=== PATIENT | male | born 1970 | race Caucasian/White ===

== ENCOUNTER → 2019-10-19 11:53 | Outpatient (CLI) | payer BC, SELFPAY ==
--- NOTE | 2019-10-19 15:19 | STRESSREP ---
Stress Test Report Date: 10/19/2019 Procedure: Exercise tolerance test Indications: Chest pain Consent: Per the patient Procedure: The patient exercised on a Gaurav protocol for 9 minutes achieving a peak heart rate of 184 bpm (106 % predicted maximal heart rate) with a peak blood pressure 154/88 mmHg and a peak MET capacity of approximately 10.1 mET's. The baseline ECG demonstrated normal sinus rhythm. The peak exercise ECG demonstrated sinus tachycardia with about [address] depressions in the inferior and lateral leads. No evidence of significant ischemia. [There were no cardiac dysrhythmias pretest, during exercise, or recovery]. The functional capacity was considered normal for age. Patient had 2 x 10 chest discomfort at peak exercise. He also had dizziness in the recovery period. When he was having dizziness he did not have any significant arrhythmias and his blood pressure was within normal limits with no evidence of orthostasis. He was having sinus tachycardia with a heart rate in the 110s to 120s. The examination was discontinued secondary to dizziness, shortness of breath, chest pressure. Impression: 1. Technically adequate (percent predicted maximal heart rate greater than 85%) exercise tolerance test 2. Stress test is positive for exercise-induced chest pain. 3. Stress test test is negative for exercise-induced EKG changes of ischemia. 4. Functional capacity is normal for age. 5. Patient had dizziness with no evidence of significant arrhythmias or drop in blood pressure. This note was generated with [email or web address] software. It may contain incorrect words, spelling, and punctuation that were not noted in checking the note before signing.
== END ==
PROVIDERS: Family Provider Family Medicine; PCP Family Medicine; Referring Provider Family Medicine; Visit Provider Family Medicine
DX: R07.9 Chest pain, unspecified (principal)
CPT/HCPCS: 93017

== ENCOUNTER → 2019-12-18 17:36 | Outpatient (CLI) | payer BC, SELFPAY ==
--- NOTE | 2019-12-18 17:42 | CT_ITS ---
STUDY: CT LEFT HIP WITHOUT CONTRAST REASON FOR EXAM: Male, 49 years old. IDIOPATHIC ASEPTIC NECROSIS OF LEFT FEMUR, ANGÉLICA RADIATION DOSAGE (If Supplied By Facility): CTDIvol = ( 20.315 ) mGy, DLP = ( 1483.26 ) mGycm TECHNIQUE: Thin section transaxial imaging of the hip was obtained, with sagittal and coronal reconstructed images. Individualized dose optimization techniques were used for this CT. COMPARISON: None. FINDINGS: Avascular necrosis of the left femoral head with subchondral fracture involving 90% of the weight-bearing surface. Degenerative changes are noted in the sacroiliac joints and pubic symphysis. There is a right hip arthroplasty in good alignment. Calcifications in the medial and lateral menisci in the knee joint are noted with chondrocalcinosis. The on metastasis in the knee joint is anatomic. CT/Extremity Lower without Contra IMPRESSION: Avascular necrosis of the left femoral head with subchondral fracture involving 90% of the weight-bearing surface. Electronically Signed: Viola Oconnor, at 8:11 EST Tel , Service support ,
== END ==
PROVIDERS: PCP Family Medicine; Referring Provider Physician Assistant Surgical; Visit Provider Physician Assistant Surgical
DX: M87.052 Idiopathic aseptic necrosis of left femur (principal)
CPT/HCPCS: 73700

== ENCOUNTER 2020-01-03 07:12 | Observation (INO) | payer BC, SELFPAY ==
[2014-06-28 09:24] VITALS: BMI 28.0
--- NOTE | 2019-12-08 13:06 | PCM.HP.BLA ---
History and Physical History and Physical Patient Name: Lino Espinal : 1970 From: CECILIA CLARKE PA-C DATE OF SURGERY: 01/03/2020 SCHEDULED PROCEDURE: left total hip arthroplasty HISTORY OF PRESENT ILLNESS: Preoperative history and physical exam was performed on December 07, 2019. This is a 49-year-old henrry who is been having ongoing pain over the past 1 year. He states over the past several months the pain in the left hip has progressively become worse. He does have history of a previous right total hip arthroplasty in 2007 due to avascular necrosis. Procedure was performed in [facility]. Patient states his pain can reach as high as a 10/10 with activities. Pain is increased with going up and down stairs, walking, sitting, driving. Pain is been constant. He does have groin pain as well as pain into the thigh down to the knee. He denies any low back pain. Patient does have start up pain. He has difficulty with activities of daily living including getting dressed as well as exercise. He has difficult time with sleeping and occasionally wakes him at night. Patient has not been on any chronic steroid use. He does consume approximately 2-3 beers daily. He denies any recent fevers, chills, recent calf pain. He has been treated by a dentist for an infected tooth. We are obtaining surgical clearance from the dentist. We'll also obtaining surgical clearance and the primary care physician Dr. Dailey. Patient has a medical history pertinent for hypertension. After failing conservative measures and discussing treatment options, the patient does wish to proceed with a left total hip arthroplasty. Patient has required the use of a cane due to the pain. REVIEW OF SYSTEMS: ROS: Const: Denies anorexia, change in appetite, fever, hard of hearing, vision problems and weight change. CV: Denies chest pain, heart murmur, irregular heartbeat and peripheral vascular disease. Resp: Denies asthma, cough, pneumonia, sleep apnea, SOB, tuberculosis and wheezing. GI: Denies constipation, diarrhea, difficulty swallowing, heartburn, nausea, bloody stools and vomiting. : Urinary: denies incontinence. Musculo: Reports limp and trouble walking, but denies leg swelling and weakness. Skin: Reports tattoo, but denies Raynaud's and history of shingles. Neuro: Denies ambulatory dysfunction, dizziness, numbness/tingling and tremor. Psych: Denies anxiety, depression, insomnia, mental illness and stress. Negro/Lymph: Denies anemia, bleeding/bruising tendency and past transfusion. Reviewed, no changes. PAST MEDICAL HISTORY: Advance Care Plan: No Advance Directives Effective Date: 11/22/2019 PMH: Medical Problems: High Blood Pressure Accidents: Fracture - JAW RT ARM RT Ankle Injury - (03/2012) RT Knee Injury - (10/2015) FELL ON IT Surgical Hx: Hip Replacement Rt - (2007) [facility], DR MCCAIN Vastectomy - (11/2011) Anesthesia Complications: None Assistive Devices: None Reviewed, no changes. 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 Personal Habits: Cigarette Use: Never.Alcohol: Weekly use.Drug Use: Denies Use.Enjoy Exercising: Daily. Reviewed and updated. VITALS: Ht: 76 Wt: 242lb Wt k.771 BMI: 29.5 BP: 112/90 Pulse: 66 Resp: 16 T: 99.1 T: 37.3C ALLERGIES: Penicillins - Rash MEDICATIONS: Losartan Potassium 100 mg 1 by mouth every day, Allopurinol 100 mg 1 by mouth every day PRE-OP EXAM: General appearance:NORMAL Other: Eyes: Conjunctivae and lids: NORMAL Pupils: ERR Ears, Nose, Mouth, and Throat: NORMAL Other: Inspection of lips, teeth and gums: NORMAL Other: Neck: Examination of neck: no masses noted. Respiratory: Assessment of respiratory effort: NORMAL Other: Auscultation of lungs: clear to auscultation no wheezes, rhonchi or rales. Cardiovascular: Auscultation of heart: regular rate and rhythm, no murmurs, gallops or rubs. Exam of carotid arteries: NORMAL Other: Gastrointestinal: Exam of abdomen: soft, nontender, nondistended bowel sounds present. PHYSICAL EXAMINATION: On physical exam patient's left hip is cool to touch without erythema. There is tenderness to palpation along the anterior left hip. He does complain of left groin pain with range of motion. There is obligatory external rotation with flexion of the left hip. Flexion 60 with increased pain, internal rotation neutral, external rotation 20. Hip strength 4/5 secondary to pain. Sensation intact to light touch. IMAGING STUDIES: Trays of the left hip reveal evidence of avascular necrosis with flattening of the femoral head. There is joint space narrowing with osteophyte formation with bony erosions within the femoral head. IMPRESSION: 1. Left hip osteoarthritis with evidence of avascular necrosis 2. Presence of right total hip arthroplasty 3. Hypertension PLAN: Did discuss and review with the patient all treatment options including surgical versus nonsurgical options. Patient does wish to proceed with the above-stated procedure. Potential risks, benefits, and complications of the procedure were discussed in detail including but not limited to , infection, nerve and blood vessel damage, persistent pain, numbness, tingling, paresthesias, blood clot, pulmonary embolism, and requirement for possible further surgery. The patient expressed full understanding and has no further questions for the doctor. Patient does agree to proceed with the above-stated procedure and has signed the surgery consent form. This dictation was created using voice recognition software. Phonetic and/or grammatical errors may exist. ___ I have re-examined the patient. There are no clinical changes since date of exam. ___ See progress notes for changes. ___ Dictated on admission Date: Time: Signature:
[2019-12-11 13:10] VITALS: BP 123/85; PULSE 93; RESP 16; TEMP 36.6; O2SAT 97; BMI 30.6
--- NOTE | 2019-12-11 13:27 | SDCEKG_ITS ---
Test Reason : Blood Pressure : / mmHG Vent. Rate : 089 BPM Atrial Rate : 089 BPM P-R Int : 124 ms QRS Dur : 106 ms QT Int : 390 ms P-R-T Axes : 004 013 013 degrees QTc Int : 474 ms Normal sinus rhythm Normal ECG Confirmed by KOMAL MCGUIRE ([id number]), editor at large JOHANN BARBOSA ([id number]) on 12/14/2019 3:02:34 PM Referred By: Vinny Oneal Confirmed By:KOMAL MCGUIRE
[2019-12-11 13:50] LABS: Absolute Lymphocyte Count 1.34 X10^3/uL (0.83-4.51); Absolute Neutrophil Count 3.5 X10^3/uL (2.0-7.7); Basophil# 0.02 X10^3/uL; Basophil% 0.4 % (0-1); Eosinophils% 1.8 % (0-5); Hematocrit 47.5 % (40-54); Hemoglobin 16.2 g/dL (13.0-16.5); Lymphocyte # 1.34 X10^3/ul (4.0); Lymphocyte % 24.4 % (19-41); Mean Corp Hgb Conc 34.1 g/dL (32-36); Mean Corpuscular Hgb 31.2 pg (27.0-32.0); Mean Corpuscular Volume 91.5 fL (80-94); Mean Platelet Vol. 10.2 fl (6.2-12.0); Monocyte# 0.49 X10^3/uL; Monocyte% 8.9 % (0-10); NRBC Flagged by Analyzer 0 % (0-5); Neutrophil # 3.51 X10^3/uL (2.7-7.7); Platelet Count 179 K/mm3 (150-450); RBC Distribution Width CV 12.3 % (11.6-14.6); RBC Distribution Width SD 41.6 fl (35.1-43.9); Red Blood Count 5.19 M/mm3 (4.6-6.2); White Blood Count 5.5 K/mm3 (4.4-11.0)
[2019-12-27 12:44] LABS: Albumin, Serum 3.6 g/dL (3.2-5.0)
[2020-01-03] VITALS (12 sets, daily range): BP systolic 111–147; BP diastolic 76–104; PULSE 66–88; RESP 16–18; TEMP 36.1–36.7; O2SAT 97–100; BMI 30.2
[2020-01-03 07:05] LABS: Bedside Glucose 78 mg/dL (70-110)
[2020-01-03] MEDS: Lactated Ringers 1,000 ML 999 ML IV ×2 (07:22→11:07)
[2020-01-03] MEDS: Acetaminophen 500 MG Tablet 1000 MG PO ×3 (07:24→21:20)
[2020-01-03] MEDS: Gabapentin 600 MG Tablet PO (07:24)
[2020-01-03] MEDS: Celecoxib 200 MG Capsule 400 MG PO (07:24)
[2020-01-03] MEDS: Cefazolin 2 GM in 0.9% Normal Saline 100 ML IV (08:40)
--- NOTE | 2020-01-03 08:45 | HIP_PTH ---
PATIENT: ALINA FINLEY LOC: MS3 U#:[id number] AGE/SX: 49/M ROOM: CA325 RE01/03/[address]: Dr. Gutierrez Marroquin DO : 1970 BED: 1 DIS: 01/04/2020 SPEC #: [id number] RECD: 01/03/20 17:13 STATUS: CELI REQ #: [id number] GEENA: 01/03/20 08:[address]: Vinny Oneal DEPT: SURGICAL PATHOLOGY RECD BY: Lamin Jane ENTERED: 01/04/20 08:49 SP TYPE: TOTAL HIP OTHR DR: DO Dr. Vicente King MD Dr. William Lago, MD Tissues: Hip, NOS Procedures: Decalcification bone/plaque Surgery Specimen Level IV HEADER OPERATION: ERAS, total hip anterior robotic arm PRE-OP DIAGNOSIS: Left hip osteoarthritis with evidence of avascular necrosis TISSUE SUBMITTED: Left femoral head MICROSCOPIC DIAGNOSIS Left femoral head, total hip replacement: Femoral head with extensive changes consistent with avascular necrosis. Fragments of reactive synovial tissue with fibrinous exudation, chronic inflammation and foreign body giant cell reaction. BAUTISTA:breezy 01/10/20 MICROSCOPIC DESCRIPTION Slides are reviewed. GROSS DESCRIPTION Received is one container designated left femoral head. The specimen consists of a femoral head measuring 5.5 x 5 x 3.5 cm. Articular cartilage is peeling off from the underlying bone. Also present in the container is a detached piece of bone consistent with femoral neck measuring 5 x 3 x 1.5 cm. Also present in the container is a piece of articular cartilage with soft tissue. The articular cartilage measures 4.5 x 3 x 0.2 cm and soft tissue measures 3 x 2 x 1 cm. Sections of soft tissue show javier-white surfaces. Ingot Stripper sections are submitted in three cassettes as follows: 1 - soft tissue, 2 & 3 - femoral head after decalcification. / BAUTISTA:breezy 01/04/20 TC:5 CPT: 30380, 40443
--- NOTE | 2020-01-03 08:45 | RAD_ITS ---
STUDY: X-RAY - PELVIS AND LEFT HIP REASON FOR EXAM: Male, 49 years old. Total anterior hip in o.r. 4.4 sec. Fl TECHNIQUE: 1 views of the pelvis and hip. COMPARISON: None. FINDINGS: Intraoperative imaging provided for left total hip replacement. There is good alignment. RAD/Hip 1 view with Pelvis IMPRESSION: Status post left total hip replacement. There is good alignment. Electronically Signed: Bud Chiang, at 12:52 EST , Service support ,
[2020-01-03] MEDS: dexAMETHasone 10 MG/ML Vial IV (09:10)
--- NOTE | 2020-01-03 10:23 | OP.PCM_ITS ---
Report of Operation Date of Procedure: 01/03/20 Pre-Operative Diagnosis: Left hip avascular necrosis Post-Operative Diagnosis: Left hip avascular necrosis Surgery/Procedure Performed:: Minimally invasive robotic assisted direct anterior total hip replacement, left Description of Surgical Findings:: Stable hip, equal leg lengths lobster fisherman: Dick Ornelas Type of Anesthesia:: Spinal Anesthesiologist: Juan Hanson Special Medications: 2 g Ancef, 1 g TXA at incision, 1 g TXA closure, 10 mg Decadron, joint cocktail (5 mg Duramorph, 30 mL of 0.5% Ropivicaine, 1000 units of epinephrine, 30 mg of Toradol) Specimen's removed: Bony cuts Estimated Blood Loss (mL): 200 Fluids Replaced: 1300 mL crystalloid Description of Procedure: Components used: 1. Accolade 2 Deanne femoral stem size 7 127? 2. Maxwell trident 2 acetabular shell size 58 mm 3. Maxwell X3 polyethylene F 4. Deanne Biolox delta 36 mm, 0 mm femoral head Brief history operative indications: 49 yo M who failed conservative measures for their hip avascular necrosis. X- rays were consistent with osteoarthritis including joint space narrowing, osteophyte formation and subchondral collapse of the femoral head. Total hip replacement was discussed with the patient with risks and benefits including but not limited to blood loss, DVTs, PEs, neurovascular damage, dislocation, general risks of anesthesia including loss of life. Patient demonstrated an understanding medical clearance is obtained the patient was consented for surgery. Procedure: On the date of procedure the patient's L hip was marked in the preoperative area. Patient was then taken back to the operating room where anesthesia assumed control of the C-spine and airway and administered anesthetic. Patient was transferred to the operating table and placed in the supine position. The hips were placed at the break of the bed and a sacral bump was placed. A checkpoint was placed on the tibial tubercle. The L lower extremity was then prepped out in a sterile fashion using chlorhexidine while the surgeon scrubbed. The PA was vital in the positioning of the patient. Upon reentering the room the L lower extremity was draped in the standard orthopedic fashion and the incision was marked. A timeout was called and everyone agreed upon the side, the site, the procedure be performed, antibody given, and patient's identity. 3 pins were placed in the right iliac crest with a small skin incision and blunt dissection down to the bone. After the skins were placed in a ray was placed for targeting. At this time left hip operative incision was made through skin, subcutaneous tissue, and fat down to fascia. The fascia was then incised and the TFL was retracted laterally. A retractor was placed on the lateral border of the femoral neck. Attention was directed to the inferior portion of the approach and all crossing vessels were identified and appropriately coagulated. A retractor was then placed on the medial portion of the femoral neck. The anterior capsule was then cleared of all soft tissue and then H shaped capsulotomy was made. The retractors were then placed inside the capsule. The checkpoint was placed. The checkpoints were registered. The femoral neck was identified and a cleanup cut was made. At this time a power corkscrew was used to remove the femoral head. Attention was then turned toward the acetabulum where the soft tissues were appropriately retracted and debrided. The acetabulum was registered. The robot was brought into the field sterilely and the acetabulum was reamed to 58 mm. A 58 mm cup was then selected and impacted into place. Acetabular liner was impacted into place and locking mechanism was verified. The position of the acetabular cup was then verified under live fluoroscopy. Attention was then turned to the femur. Soft tissue releases on the medial and lateral femoral neck were appropriately done, the leg was externally rotated and lateralized. A Cueva retractor was placed medially and proximally to the greater trochanter this allowed appropriate visualization and exposure of the femoral canal. Rongeour was then used to remove excess lateral bone. A canal finder and entry broach were used to open the proximal canal. Once we verified we were down the femoral canal we subsequently broached up to a size 7 femur. The appropriate neck was placed in the previously selected head was trialed with a 0 mm neck. Traction was pulled and the hip was reduced with internal rotation. Once it was appropriately reduced and stability was checked. There was minimal shuck, equal leg lengths and appropriate stability with hyperextension and external rotation as well as with 90? flexion and internal rotation. Fluoroscopy was then also used to verify the position of the components and leg lengths using the contralateral side for comparison. The trial components were then dislocated the proximal femur was again exposed and the components were removed from the wound. The final components were verified and opened. The wound was copiously irrigated out with normal saline. The acetabulum was checked for any residual debris. The final components were placed and impacted. Traction and internal rotation were again used to reduce the hip. After adequate reduction the hip remained stable with appropriate leg lengths. The final components were once again checked with live fluoroscopy and were found to be satisfactory. The wound was then copiously irrigated with normal saline once more, and hemostasis was obtained. Closure was then done using #1 Vicryl runner to close the fascia. A 2-0 vicryl interuppted sutures were used to close the subcutaneous skin. A 3-0 Monocryl and Steri-Strips were used for final skin closure. the pins were removed and pin sites closed. A sterile dressing was placed. Patient was awakened by anesthesia and transferred to the [place]. Patient was then transferred to the PACU for recovery. Postoperative plan: Patient will get 24 hours postop antibiotics. Patient will get in-house physical therapy and will be weight-bear as tolerated. Patient will follow up in office in 2 weeks for a wound check and x-rays. - Complications No intraoperative complications - Admit VTE Documentation VTE Present on Admission: No VTE Mechan Device Prophylaxis: SCD's, Thigh High DARNELL Hose VTE Pharm Prophylaxis ordered?: Yes
[2020-01-03] MEDS: Lactated Ringers 1,000 ML 125 ML IV ×4 (10:50→21:20)
--- NOTE | 2020-01-03 10:54 | RAD_ITS ---
STUDY: X-RAY - PELVIS AND LEFT HIP REASON FOR EXAM: Male, 49 years old. POST OP LEFT HIP TECHNIQUE: 2 views of the pelvis and hip. COMPARISON: Comparison is made with prior study done earlier today. FINDINGS: The patient is status post left total hip preplacement. There is good alignment. Postoperative soft tissue changes. RAD/Hip Min 2 Views (Portable) IMPRESSION: Status post left total hip replacement. Good alignment. Postoperative soft tissue changes. Electronically Signed: Bud Chiang, at 12:52 EST , Service support ,
[2020-01-03] MEDS: Scopolamine 1mg/72hr Patch 1 PATCH TD (11:11)
[2020-01-03] MEDS: Ensure Surgery 237 ML LIQUID PO ×2 (13:18→16:59)
[2020-01-03] MEDS: Famotidine 20 MG Tablet PO (13:18)
[2020-01-03] MEDS: Allopurinol 100 MG Tablet PO (13:19)
--- NOTE | 2020-01-03 15:40 | PCM.PN.HOSP ---
Subjective: 49-year-old male who presents today for left total hip arthroplasty, he is feeling very well today and states that the pain postoperatively is much better than what the pain was prior to surgery. He has already walked the entire unit today with therapy. He had a right total hip done in 2007 for avascular necrosis, and he is found to have left hip osteoarthritis with evidence of avascular necrosis, apparently this is genetic as his brother has also had undergo hip replacement for avascular necrosis. His procedure today 01/03/2020 and is doing well. He has very few chronic medical conditions and those were all been stable. Vitals/I&O's: Vital Signs Temp Pulse Resp BP Pulse Ox 97.8 F 83 16 133/93 H 97 01/03/20 14:29 01/03/20 14:29 01/03/20 14:29 01/03/20 14:29 01/03/20 14:29 Oxygen Flow Rate (L/min) 6 Oxygen Delivery Method Room Air Weight: 242 lb Body Mass Index (BMI) 30.2 Intake and Output for Last 24 Hours 01/01/20 01/02/20 01/03/20 23:59 23:59 23:59 Intake Total 3440.42 / 3440.42 Balance 3440.42 / 3440.42 General: Alert, Oriented x3, Cooperative, No apparent distress HEENT: Atraumatic, PERRLA, EOMI, Normocephalic Oral: Moist Mucosa Neck: Supple, No JVD Lungs: Clear to auscultation, Normal air movement, No rhonchi, No wheeze, No rales Cardiovascular: Regular rate, Regular Rhythm, Normal S1, Normal S2, No murmurs Abdomen: Soft, Non Tender, Non-Distended, No Hepato-splenomegaly Extremities: No edema, Capillary Refill Less than 3 Seconds Skin: No rashes, No breakdown, Incision - Dressing CDI Neurological: Neuro grossly intact, Sensory exam intact to light touch and pain Psych/Mental Status: Normal Affect, Appropriate Laboratory Results 01/03/20 07:03: POC Glucose 78 Current Medications Acetaminophen (Tylenol) 1,000 mg PO Q8 [facility] Last Admin: 01/03/20 14:52 Dose: 1,000 mg Documented by: Allopurinol (Zyloprim) 100 mg PO DAILYCM [facility] Last Admin: 01/03/20 13:19 Dose: 100 mg Documented by: Aspirin (Aspirin, Baby) [facility] Cholecalciferol (Vitamin D (25mcg)) 1,000 unit PO DAILYCM [facility] Last Admin: 01/03/20 13:18 Dose: 1,000 unit Documented by: Enteral Nutritional Formula (Ensure Surgery) 237 ml PO TIDCM [facility] Last Admin: 01/03/20 13:18 Dose: 237 ml Documented by: Famotidine (Pepcid) 20 mg PO DAILY [facility] Last Admin: 01/03/20 13:18 Dose: 20 mg Documented by: Lactated Ringer's () 1,000 mls @ 125 mls/hr IV .Q8H [facility] Last Admin: 01/03/20 12:35 Dose: 125 mls/hr Documented by: Cefazolin Sodium () 1 gm in 50 mls @ 150 mls/hr IV Q8H [facility] Stop: 01/04/20 01:19 Insulin Human Lispro (Humalog Kwikpen ([facility])) 1 - 6 unit SC Q4H PRN PRN; Protocol PRN Reason: BG>/= 180, SEE PROTOCOL Ketorolac Tromethamine (Toradol (Bkc)) 15 mg IV Q6H PRN PRN PRN Reason: Pain Score 1-5/10 Stop: 01/05/20 07:13 Losartan Potassium (Cozaar) 100 mg PO DAILY [facility] Meloxicam (Mobic) 7.5 mg PO BID [facility] Morphine Sulfate () 2 - 4 mg IV Q2H PRN PRN PRN Reason: Pain Score 4-10/10 Morphine Sulfate () 2 - 4 mg IV Q2H PRN PRN PRN Reason: Pain Score 4-10/10 Ondansetron HCl (Zofran) 4 mg IV Q8H PRN PRN PRN Reason: NAUSEA Promethazine HCl (Phenergan) 12.5 mg IM Q6H PRN PRN; Protocol PRN Reason: NAUSEA/VOMITING Senna/Docusate Sodium (Senokot-S, Orin-Colace) 2 tablet PO BID [facility] Last Admin: 01/03/20 13:19 Dose: Not Given Documented by: Sodium Chloride () 10 - 40 ml IV UD PRN PRN Reason: SALINE FLUSH Tramadol HCl (Ultram) 50 - 100 mg PO Q6H PRN PRN PRN Reason: Pain Score 4-10/10 STROKE Vital Signs/Narrative: Vital Signs Temp Pulse Resp BP Pulse Ox 01/03/20 14:29 97.8 F 83 16 133/93 H 97 01/03/20 12:40 97.9 F 66 18 124/83 H 98 01/03/20 12:00 96.9 F L 68 16 115/80 100 01/03/20 11:59 96.9 F L 68 16 115/80 100 01/03/20 11:46 66 16 119/76 100 Medical Necessity - Tobacco Use Smoking Status: Never smoker Tobacco Use: Non-smoker Assessment/Plan 1. Left total hip replacement 01/03/2020 -Pain management per primary -DVT prophylaxis per primary -PT/OT 2. HTN -Blood pressures are stable -Continue with losartan 3. Gout -Stable -Continue with allopurinol DVT: Aspirin twice daily Code Visit OBSV E&M: 37671 Subsequent observation care L2
[2020-01-03] MEDS: Aspirin 81 MG TAB.CHEW PO (16:58)
[2020-01-03] MEDS: Cefazolin 1 GM/50 ML BAG IV (16:59)
[2020-01-03] MEDS: traMADol 50 MG Tablet PO (21:20)
[2020-01-04] MEDS: Cefazolin 1 GM/50 ML BAG IV (01:11)
[2020-01-04 02:30] VITALS: BP 136/78; PULSE 78; RESP 16; TEMP 36.8; O2SAT 98
[2020-01-04] MEDS: Acetaminophen 500 MG Tablet 1000 MG PO (05:09)
[2020-01-04 05:57] LABS: Hematocrit 39.9 % (40-54); Hemoglobin 13.2 g/dL (13.0-16.5); Mean Corp Hgb Conc 33.1 g/dL (32-36); Mean Corpuscular Hgb 30.8 pg (27.0-32.0); Mean Platelet Vol. 10.1 fl (6.2-12.0); Platelet Count 202 K/mm3 (150-450); Red Blood Count 4.29 M/mm3 (4.6-6.2)
[2020-01-04 06:24] LABS: Anion Gap 4 (5-15); BUN 16 mg/dL (7-18); Calcium,Total 8.8 mg/dL (8.5-10.1); Chloride 110 mmol/L (98-107); Creatinine, Serum 0.94 mg/dL (0.70-1.30); EST Glomerular Filtration Rate 91 mL/min (>60); Est Glom Filt Rate - Afr Amer 110 mL/min (>60); Estimated Creatinine Clearance 116.11 ml/min; Glucose 158 mg/dL (74-106); Potassium 4.6 mmol/L (3.5-5.1); Sodium Level 141 mmol/L (136-145)
[2020-01-04] MEDS: Ensure Surgery 237 ML LIQUID PO (07:45)
[2020-01-04] MEDS: Allopurinol 100 MG Tablet PO (07:45)
[2020-01-04] MEDS: Aspirin 81 MG TAB.CHEW PO (07:45)
[2020-01-04] MEDS: traMADol 50 MG Tablet PO (07:52)
[2020-01-04 07:55] VITALS: BP 145/83; PULSE 72; RESP 18; TEMP 36.7; O2SAT 99
--- NOTE | 2020-01-04 08:47 | PCM.PN.ORT ---
Subjective: The patient was sitting in bedside chair upon examination. Patient denies any chest pain, shortness of breath, dizziness, lightheadedness, nausea or vomiting, or calf pain. Pain is controlled on medications. No adverse overnight events. Patient is doing very well and has very little pain in his postoperative left hip. Patient is tolerating physical therapy very well. Objective: Vital signs stable and afebrile. Patient is able to plantarflex and dorsiflex actively. Sensation is intact to light touch to saphenous, sural, superficial and deep peroneal, and tibial distribution. Dressing is clean dry and intact. Negative Homans bilaterally, negative signs and symptoms of DVT. - Physical Exam Vitals/I&O's: Vital Signs Temp Pulse Resp BP Pulse Ox 98.0 F 72 18 145/83 H 99 01/04/20 07:55 01/04/20 07:55 01/04/20 07:55 01/04/20 07:55 01/04/20 07:55 Oxygen Flow Rate (L/min) 6 Oxygen Delivery Method Room Air Weight: 109.769 kg Body Mass Index (BMI) 30.2 Intake and Output for Last 24 Hours 01/02/20 01/03/20 01/04/20 23:59 23:59 23:59 Intake Total 4490.42 / 4490.42 1231.25 / 1231.25 Balance 4490.42 / 4490.42 1231.25 / 1231.25 General: Alert, Oriented x3, Cooperative, No apparent distress Laboratory Results 01/04/20 05:42: WBC 13.0 H, RBC 4.29 L, Hgb 13.2, Hct 39.9 L, MCV 93.0, MCH 30.8, MCHC 33.1, RDW Std Deviation 41.0, RDW Coeff of Joy 12.0, Plt Count 202, MPV 10.1 01/04/20 05:42: Sodium 141, Potassium 4.6, Chloride 110 H, Carbon Dioxide 27.0, Anion Gap 4 L, BUN 16, Creatinine 0.94, Estim Creat Clear Calc 116.11, Est GFR (MDRD) Af Amer 110, Est GFR (MDRD) Non-Af 91, BUN/Creatinine Ratio 17.0, Glucose 158 H, Calcium 8.8 Current Medications Acetaminophen (Tylenol) 1,000 mg PO Q8 [facility]LINDA Last Admin: 01/04/20 05:09 Dose: 1,000 mg Documented by: [facility]) [facility] Last Admin: 01/04/20 07:45 Dose: 100 mg Documented by: Aspirin (Aspirin, Baby) [facility] Last Admin: 01/04/20 07:45 Dose: 81 mg Documented by: Cholecalciferol (Vitamin D (25mcg)) 1,[facility] Last Admin: 01/04/20 07:45 Dose: 1,000 unit Documented by: Enteral Nutritional Formula (Ensure Surgery) 237 ml PO TIDCM [facility] Last Admin: 01/04/20 07:45 Dose: 237 ml Documented by: Famotidine (Pepcid) 20 mg PO DAILY [facility] Last Admin: 01/03/20 13:18 Dose: 20 mg Documented by: Lactated Ringer's () 1,000 mls @ 125 mls/hr IV .Q8H [facility] Last Admin: 01/04/20 05:09 Dose: Not Given Documented by: Insulin Human Lispro (Humalog Kwikpen (Bkc)) 1 - 6 unit SC Q4H PRN PRN; Protocol PRN Reason: BG>/= 180, SEE PROTOCOL Ketorolac Tromethamine (Toradol (Bkc)) 15 mg IV Q6H PRN PRN PRN Reason: Pain Score 1-5/10 Stop: 01/05/20 07:13 Losartan Potassium (Cozaar) 100 mg PO DAILY [facility] Meloxicam (Mobic) 7.5 mg PO BID [facility] Morphine Sulfate () 2 - 4 mg IV Q2H PRN PRN PRN Reason: Pain Score 4-10/10 Morphine Sulfate () 2 - 4 mg IV Q2H PRN PRN PRN Reason: Pain Score 4-10/10 Ondansetron HCl (Zofran) 4 mg IV Q8H PRN PRN PRN Reason: NAUSEA Promethazine HCl (Phenergan) 12.5 mg IM Q6H PRN PRN; Protocol PRN Reason: NAUSEA/VOMITING Senna/Docusate Sodium (Senokot-S, Orin-Colace) 2 tablet PO BID [facility] Last Admin: 01/03/20 21:21 Dose: Not Given Documented by: Sodium Chloride () 10 - 40 ml IV UD PRN PRN Reason: SALINE FLUSH Tramadol HCl (Ultram) 50 - 100 mg PO Q6H PRN PRN PRN Reason: Pain Score 4-10/10 Last Admin: 01/04/20 07:52 Dose: 50 mg Documented by: Medical Necessity - Tobacco Use Smoking Status: Never smoker Tobacco Use: Non-smoker Assessment/Plan 1. S/P direct anterior left total hip arthroplasty POD #1 2. Continue Pain Medications: Tylenol and tramadol. Patient is on meloxicam as well 3. DVT Prophylaxis: Aspirin 81 mg twice daily for 4 weeks postoperatively 4. PT/OT: Weightbearing as tolerated 5. H & H: 13.2/39.9, asymptomatic 6. Encouraged Incentive Spirometry 7. Reactive leukocytosis: Currently 13.0, afebrile. Patient did receive Decadron intraoperatively 8. Continue postoperative medical management per medicine 9. Disposition: Orthopedically stable, patient is doing very well and has tolerated physical therapy. Pain is well controlled. Patient will follow-up per postop instructions. Prescriptions will be E scribed to [facility]. Patient has outpatient physical therapy established.. I have reviewed the [place] Automated Rx Reporting System (OARRS) report for this patient for refill pattern and other prescriber involvement as part of the appropriate surveillance for the provision of acute and chronic controlled medications. The report was requested and reviewed on the date of this entry and was considered in the prescribing process.
--- NOTE | 2020-01-04 08:55 | DCINST_ITS ---
Discharge Diet: No Restrictions Discharge Activity: May Not Drive - while taking narcotic pain medications. May shower in (days): 1 - Dressings must be intact to skin, turn dressing away from water Ice area for (Minutes): 20 - Every 1-2 hours while awake Weight Bearing Status: Weight bearing as tolerated Elevate: Operative Extremity Additional Activity Instructions:: Wear elastic stockings for 2 weeks. DO NOT use alcohol with narcotic pain medication. DO NOT make important decisions while taking narcotic medication. If you have problems with taking your medication (rash, itching, nausea, etc.) call the office at once. Call your doctor if your incision/area has: Increased Pain/ Swelling, Increased Redness, Foul Smelling Discharge Call your doctor if you observe: Fever of 101 or Higher Remove Dressing in (days):: 4 - Okay to remove dressing on January 08, 2020 Additional Instructions: Pain Medications: continue with Meloxicam. You are not to combine alcohol with Tylenol and Tramadol if using for pain control. Allergies/Adverse Reactions: Allergies Penicillins Allergy (Verified 01/03/20 07:03) Hives SPINAL EPIDURAL Allergy (Uncoded 01/03/20 07:03) Itching Medications to take at Discharge Allopurinol [Zyloprim] 100 mg PO DAILYCM 12/11/19 Cholecalciferol (VIT D3) [Vitamin D3] 1,000 unit PO DAILY 12/11/19 Losartan Potassium 100 mg PO DAILY 12/11/19 Acetaminophen [Tylenol] 1,000 mg PO Q8 tablet 01/04/20 Aspirin [Aspirin, Baby] 81 mg PO BIDCM tab 01/04/20 Famotidine [Pepcid] 20 mg PO DAILY #30 tab 01/04/20 Meloxicam [Mobic] 7.5 mg PO BID #60 tab 01/04/20 Senna/Docusate Sodium [Senokot-S] 2 tab PO BID #10 tab 01/04/20 traMADol [Ultram] 50 - 100 mg PO Q6H PRN PRN #32 tablet 01/04/20 The following prescriptions were given: Meloxicam [Mobic] 7.5 mg PO BID #60 tab Transmission Status: Pending to [facility] Famotidine [Pepcid] 20 mg PO DAILY #30 tab Transmission Status: Pending to [facility] Senna/Docusate Sodium [Senokot-S] 2 tab PO BID #10 tab Transmission Status: Pending to [facility] traMADol [Ultram] 50 - 100 mg PO Q6H PRN PRN #32 tablet PRN Reason: Pain Score 4-10/10 Transmission Status: Sent to [facility] Primary Care Physician: Trent Dailey MD [Primary Care Provider] - Test Results: Test results from this visit will be discussed in further detail at your follow- up appointment, if applicable. Please Follow Up With: Physical Therapy When: 01/08/20 @ 9:00 am Please Follow Up With: Kilo Lockhart PA-C When: 01/15/20 @ 10:00 am
--- NOTE | 2020-01-04 10:05 | CASEMGMT ---
RN MIKY Face to Face with patient for initial transition planning/care coordination assessment. RN CM introduced self and role at [facility]. Patient lying in bed, alert and oriented, at bedside. Patient willing to participate in assessment and is able to answer all questions appropriately. Care providers, pharmacy, and demographics verified. Patient wishes to discharge home and is setup with [facility] for outpatient therapy. Patient states he has no further needs or concerns at this time. CM to follow for discharge planning needs that may arise. PCP: Asim Specialists: [facility] Pharmacy: [facility] Retail Insurance: [place] Prescription Benefit: yes Living Will/HPOA: none LNOK: Living Arrangements: patient lives with in 1 story home with 4 steps and railing to enter the home. Transportation: , DME/HHC: Patient has cane and walker and access to grandmother's DME. Patient is scheduled for outpatient therapy at [facility]. Disposition Plan: Patient to discharge home with family support and follow-up plans in place. Savannah GIRON, RN, CM
[2020-01-04] MEDS: Famotidine 20 MG Tablet PO (11:06)
[2020-01-04] MEDS: Losartan Potassium 100 MG Tablet PO (11:06)
== END 2020-01-04 11:24 | disposition home or self-care (01) ==
LOC: MS3 12:01 → SDC 12:02 → MS3 12:02
PROVIDERS: Admitting Provider Specialist; PCP Family Medicine; Referring Provider Specialist
PROC: 8E0Y0CZ Robotic Assisted Procedure of Lower Extremity, Open Approach (ICD-10-PCS; CPT 27130; principal; 2020-01-03 08:15)
DX: M87.88 Other osteonecrosis, other site (principal); I10 Essential (primary) hypertension; Z79.899 Other long term (current) drug therapy; M16.12 Unilateral primary osteoarthritis, left hip
CPT/HCPCS: 01214; 27130; S2900; 36415; 73501; 73502; 76000; 80048; 82040; 82962; 85025; 85027; 87081; 88305; 88311; 93005; 96361; 96365; 96366; 97110; 97161; 97166; 97530; 97535; 99218; 99251; C1776; J7120; G0378; G0379; G0463

== ENCOUNTER 2022-05-17 13:53 | Emergency (ER) | payer OTHER, SELFPAY ==
[2022-05-17 13:54] VITALS: BP 146/92; PULSE 91; RESP 16; TEMP 36.4; O2SAT 100; BMI 29.2
--- NOTE | 2022-05-17 14:14 | EDS_ITS ---
HPI History of Present Illness HPI Narrative: Right thumb infection not improving. Chief Complaint: Upper Extremity Injury Informant: patient Occured/Mechanism Mechanism/Context: No injury and No blunt trauma Onset/Context/Timing Onset: Days Context: Gradual Onset Timing: Continuous Current Severity: Mild Maximum Severity: Mild Associated Symptoms Associated Symptoms: Positive for Parasthesia; Negative for Weakness or Loss of Funtion Narrative Narrative: 51-year-old male has a history of eczema. For the last several weeks since Wednesday a week ago he has had pain and swelling in his right thumb primarily the pad. Denies any trauma. He said he did cut it open and was able to express some discharge. He was seen in urgent care about a week ago started on doxycy doyle. He saw him again today he did not feel like it was improving they sent him to the ER for further evaluation. He denies any fever or chills. Reportedly the urgent care did wound culture and grew out MRSA. He is right- hand dominant. He is never had right hand surgery. Prior similar symptoms: No Recent Illness/Hospitalization: No PFSH PFS Medical History (Updated 05/17/22 @ 16:[address] Dick Bolanos MD) Gout HTN (hypertension) Hyperlipidemia Home Medications allopurinol 100 mg tablet 200 mg PO DAILYCM GOUT 12/11/19 [History Last Taken Unknown] aspirin 81 mg chewable tablet 81 mg PO BIDCM 01/04/20 [Rx Last Taken Unknown] meloxicam 7.5 mg tablet 7.5 mg PO BID #60 tabs 01/04/20 [Rx Last Taken Unknown] cephalexin 500 mg capsule 500 mg PO Q6H 10 days #40 caps 05/17/22 [Rx Last Taken Unknown] fenofibrate nanocrystallized 145 mg tablet tab PO 05/17/22 [History Last Taken Unknown] sulfamethoxazole 800 mg-trimethoprim 160 mg tablet (Bactrim DS) 1 tab PO BID 10 days #20 tabs 05/17/22 [Rx Last Taken Unknown] tramadol 50 mg tablet (Ultram) 50 mg PO Q6H PRN pain 5 days #20 tabs 05/17/22 [Rx Last Taken Unknown] Allergy/AdvReac Type Severity Reaction Status Date / Time Penicillins Allergy Hives Verified 05/17/22 14:00 SPINAL EPIDURAL Allergy Itching Uncoded 05/17/22 14:00 Social History Smoking Status: Never smoker ROS ROS ED ROS Narrative Denies. Review of Systems ROS Unobtainable: Denies due to encephalopathy Constitutional Constitutional ED: Denies chills Eyes Eyes: Denies blurry vision ENT ENT ED: Denies ear pain Cardiovascular Cardiovascular: Denies chest pain Respiratory/Chest Respiratory/Chest: Denies cough Gastrointestinal Gastrointestinal: Denies abdominal pain Genitourinary Genitourinary ED: Denies dysuria Musculoskeletal Musculoskeletal: Denies back pain Integumentary Reports abscess Neurologic Neurologic: Denies headache(s) Psychiatric Psychiatric: Denies anxiety Endocrine Endocrinology: Denies cold intolerance Hematologic/Lymphatic Hematologic/Lymphatic: Denies easy bleeding Allergic/Immunologic Allergic/Immunologic ED: Denies mouth swelling EXAM Physical Exam Narrative Exam Narrative: 51-year-old male no acute distress. Vital signs stable afebrile. H EENT exam unremarkable. Lungs are clear. Heart regular rhythm no murmur. Abdomen soft nontender. Specifically right hand the thumb is swollen significantly about twice the size of his other thumb. There is mild tenderness on the palmar surface of the thumb at the distal phalanx. This may be secondary to a feline or just soft tissue infection. He is able to flex things extend thumb. There is no signs of tenosynovitis. There is no extending cellulitis or lymphangitic streaking. There is no joint involvement. Const Vital Signs: 05/17/22 13:54 Temperature 97.6 F L Temperature Source Temporal Pulse Rate 91 Respiratory Rate 16 Blood Pressure 146/92 H Blood Pressure Mean 110 Pulse Ox 100 Oxygen Delivery Method Room Air Positive well nourished and well developed; Negative for cachectic, contractures or unkempt General Appearance ED: well developed; Negative for unkempt, cachectic or contractures Nutritional Appearance: Negative for cachectic HEENT Reports moist mucous membranes normocephalic and atraumatic; Negative for trauma Eyes PERRL and EOMs intact bilaterally Neck full ROM and supple General: Negative for tenderness Lymph Lymphatic: Negative for other Chest Wall inspection of chest normal and palpation of chest normal Resp normal respiratory effort and clear to auscultation bilaterally Effort and Inspection: Negative for pain with movement Auscultation: Negative for rales, rhonchi or wheezes Cardio regular rate, regular rhythm, S1 normal heart sound, S2 normal heart sound and no murmurs Rate: Negative for bradycardia Rhythm: Negative for abnormal rhythm GI non-tender, non-distended and no masses Inspection: Negative for abdominal distention Auscultation: normoactive bowel sounds Palpation: soft; Negative for tender or guarding Extremity Negative for normal to inspection Extremity Narrative: Right thumb distal phalanx palmar surface swollen mildly tender consistent with soft tissue infection or possible abscess. No signs of tenosynovitis. No extending cellulitis or lymphangitic streaking. Neuro oriented x3 Sensorium / Orientation: alert, oriented to person, oriented to place and oriented to time Motor Exam: strength 5/5 throughout Psych mental status grossly normal Appearance: Negative for unkempt Attitude: No agitated Mood & Affect: Negative for depressed or anxious Skin Skin Narrative: History of eczema. General Skin Exam: Negative for petechiae Lesions: No no lesions Rashes: No no rashes Trauma: Negative for no lacerations or abrasions MDM MDM MDM Narrative Medical decision making narrative: 51-year-old male with right thumb infection. X-ray to be obtained. He will undergo digital block and will do an incision and drainage of the thumb. Procedures Other Procedures Procedure(s): Right thumb incision and drainage. Thumb cleaned with Shur-Clens washed with saline. Did a digital block on the palmar side. Once proper anesthesia was obtained I made about a 2-1/2 cm incision on the ulnar side of his right distal thumb. Was able to express about 3 cc of pus. Probed the wound with a hemostat. Broke up any loculations. I could not express any more pus. It was packed using half-inch gauze. Patient and instructed on wound care and follow-up with orthopedics tomorrow. He will be started on Keflex and Bactrim. Knows to return if worse. Discharge Plan Triage Chief Complaint: Upper Extremity Injury ED Provider: Dick Bolanos Dx/Rx/DC Orders Clinical Impression: Felon of finger of right hand Instructions: ED Abscess Incision And Drainage Prescriptions: New sulfamethoxazole-trimethoprim [Bactrim DS] 800-160 mg tablet 1 tab PO BID 10 Days Qty: 20 0RF cephalexin 500 mg capsule 500 mg PO Q6H 10 Days Qty: 40 0RF tramadol [Ultram] 50 mg tablet 50 mg PO Q6H PRN (Reason: pain) 5 Days Qty: 20 0RF No Action allopurinol 100 MG tablet 200 mg PO DAILYCM meloxicam 7.5 MG tablet 7.5 mg PO BID Qty: 60 0RF Rx Instructions: Do not take any other nonsteroidal anti-inflammatories while on asya oxicam/Mobic aspirin 81 MG tablet,chewable 81 mg PO BIDCM 0RF Rx Instructions: Take 81 mg aspirin twice daily for 4 weeks postoperatively for DVT prophylaxis fenofibrate nanocrystallized 145 mg tablet PO Primary Care Provider: Trent Dailey Referrals: Vicente Randall DO [STAFF PHYSICIAN] - As soon as possible Trent Dailey MD [Primary Care Provider] - Activity Restrictions/Additional Instructions: Elevate your hand to decrease pain and swelling Ultram for pain. Warm soaks twice a day 15 to 20 minutes each time. When she see the orthopedic doctor he can pull the packing out. If the packing falls out leave it out. Leave this covered except when you are soaking it. Return if is looking worse. Disposition Disposition: Home, Self Care
[2022-05-17] MEDS: Lidocaine 1% (20 ml mdv) 20 ML Vial 15 ML INFILT (14:17)
--- NOTE | 2022-05-17 15:03 | RAD_ITS ---
EXAM: XR RIGHT THUMB COMPLETE, 3 OR MORE VIEWS CLINICAL INDICATION: Right thumb swelling. TECHNIQUE: Frontal, lateral and oblique views of the right thumb. This report was created using [employer] report generation technology. COMPARISON: None. FINDINGS: BONES/JOINTS: Unremarkable. No acute fracture. No subluxation. Normal alignment. Preservation of the joint space. No sclerotic or destructive changes observed. SOFT TISSUES: Unremarkable. No soft tissue swelling or gas. No radiopaque foreign body. RAD/Finger(s) Min 2 Views IMPRESSION: Negative right thumb x-rays. Electronically Signed: Honorio Corley MD at 16:06 EDT ,
[2022-05-17] MEDS: Cephalexin 250 MG Capsule 500 MG PO (17:08)
[2022-05-17] MEDS: Smz/Tmp Ds Tablet 1 TABLET PO (17:08)
== END 2022-05-17 17:12 | disposition home or self-care (01) ==
PROVIDERS: Emergency Provider Emergency Medicine; PCP Family Medicine; Visit Provider Emergency Medicine
DX: L08.9 Local infection of the skin and subcutaneous tissue, unspecified (principal); B95.62 Methicillin resistant Staphylococcus aureus infection as the cause of diseases classified elsewhere; I10 Essential (primary) hypertension; E78.5 Hyperlipidemia, unspecified; Z79.899 Other long term (current) drug therapy; Z79.82 Long term (current) use of aspirin
CPT/HCPCS: 10060; 73140; 99283